=== PATIENT | male | born 1955 | race Caucasian/White ===

== ENCOUNTER → 2016-09-08 | Day surgery (SDC) | payer OTHER ==
--- NOTE | 2016-09-07 08:23 | MH ---
cc: MICK HANLEY M.D. DATE OF ADMISSION: 09/08/2016 DATE OF : 1955 CHIEF COMPLAINT Dysphagia. HISTORY OF PRESENT ILLNESS A 60-year-old male with a history of cancer status post radiation therapy. Richard had problems with dysphagia. He has had previous dilations by Dr. Geller that were successful. More recently GI had done dilation two years ago without much improvement. He is brought to the operating room for esophageal dilation under anesthesia. MEDICATIONS Meloxicam. ALLERGIES MORPHINE, UNSPECIFIED PENICILLIN RASH. PAST MEDICAL HISTORY 1. Hodgkin's disease. 2. Lung cancer. 3. Squamous cell skin cancer. 4. Hypertension. PHYSICAL EXAMINATION GENERAL: A well-developed thin male in no apparent distress. HEENT: Normocephalic, atraumatic. Extraocular motions intact. External ear canals clear. Lips, oral mucosa and oropharynx show no lesion. NECK: The neck shows no mass. CHEST: Clear to auscultation. HEART: Regular rate. ABDOMEN: Soft. EXTREMITIES: No lesion. NEUROLOGIC: Nonfocal. ASSESSMENT AND PLAN This is a 60-year-old male with previous cancer history. He is to undergo esophageal dilation with soft rubber dilators, multiple passes. The risks and benefits were discussed with the patient. The risks include but are not limited to those of anesthesia, bleeding, unfavorable scarring, hematoma, abscess, infection, perforation, bleeding, airway obstruction. The patient states he understands and accepts the risks of the procedure. MD FARZANA Nolen/EUSEBIO /7:56 AM /8:08 AM
[~2016-09-08] VITALS: Ht 165.1 cm; Wt 65.0 kg
[~2016-09-08] MED LIST: ACETAMINOPHEN/HYDROcodone 325 MG/5 MG TAB PO PRN; DEXAMETHASONE SOD PHOS 4 MG/ML VIAL ONE; DO NOT ADM ANY ANTICOAGULANT DRUGS XX PRN; FAMOTIDINE 20 MG/2 ML VIAL ONE; INSULIN HUMAN REGULAR 1,000 UNITS/10 ML VIAL SQ PRN; LACTATED RINGER'S 1000 ML IV SCH; MEPERIDINE HCL 25 MG/ML VIAL IV PRN; METOPROLOL TARTRATE 25 MG TAB PO PRN; MIDAZOLAM HCL 2 MG/2 ML VIAL ONE; ONDANSETRON HCL 4 MG/2 ML VIAL IV PUSH PRN; PROPOFOL 200 MG/20 ML AMP IV ONE; SODIUM CHLORID 0.9% 500 ML IV SCH; TELM5TAB PO
[2016-09-08 06:45] VITALS: BP 139/89; PULSE 69; RESP 16; TEMP 97.7; O2SAT 98
[2016-09-08 07:04] LABS: AUTOMATED NEUTROPHIL # 4.2 TH/MM3 (1.8-7.7); BASOPHIL # 0.1 TH/MM3 (0-0.2); BASOPHIL % 1.2 % (0.0-2.0); EOSINOPHIL # 0.2 TH/MM3 (0-0.4); EOSINOPHIL % 2.6 % (0.0-4.0); HEMATOCRIT 36.5 % (39.0-51.0); HEMO FLAGS DIFF FINAL; LYMPH % 27.7 % (9.0-44.0); MEAN CELL VOLUME 92.4 FL (80.0-100.0); MEAN CORPUSCULAR HEMOGLOBIN 32.9 PG (27.0-34.0); MEAN CORPUSCULAR HGB CONC 35.6 % (32.0-36.0); MONO % 9.6 % (0.0-8.0); NEUT % 58.9 % (16.0-70.0); PLATELET COUNT 291 TH/MM3 (150-450); RED BLOOD COUNT 3.95 MIL/MM3 (4.50-5.90); RED CELL DISTRIBUTION WIDTH 14.9 % (11.6-17.2); WHITE BLOOD COUNT 7.1 TH/MM3 (4.0-11.0)
--- NOTE | 2016-09-08 08:06 | MP ---
cc: MICK HANLEY M.D. DATE OF SURGERY 09/08/2016 INDICATIONS A 60-year-old male with history of head and neck cancer, previous history of Hodgkin's disease, radiation therapy. He has dysphagia, has had previous dilations with Dr. Smith in the past and by GI. He is to undergo esophageal dilation with multiple passes of soft rubber dilators. PREOPERATIVE DIAGNOSIS Dysphagia. POSTOPERATIVE DIAGNOSIS Dysphagia. PROCEDURE Esophageal dilation multiple passes with soft rubber dilators. SUMMARY The patient was brought to the operating room and placed in supine position, successfully placed under general anesthesia, prepped and draped in the usual fashion for this procedure. The head and neck tissues were palpated. There was no lesion. Then with careful digital exposure, the tongue was placed anteriorly and with several passes the dilators were used to proceed with esophageal dilation. He had the normal amount of resistance. There was no excessive bleeding. He tolerated procedure well. MD FARZANA Nolen/STEFFANY /7:39 AM /7:57 AM
[2016-09-08 09:11] VITALS: BP 140/87; PULSE 65; RESP 16; TEMP 97.8; O2SAT 99
--- NOTE | 2016-09-08 09:30 | EKG ---
Date Performed: 09/08/2016 Time Performed: 06:56:04 PTAGE: 60 years EKG: Sinus rhythm MODERATE VOLTAGE CRITERIA FOR LVH, CONSIDER NORMAL VARIANT BORDERLINE ECG PREVIOUS TRACING : 04/27/2007 09.33 DOCTOR: River Keita Interpretating Date/Time 09/08/2016 09:30:20
== END | disposition home or self-care (01) ==
LOC: HSDC 05:50
PROVIDERS: ATTEND Specialist
DX: R13.10 Dysphagia, unspecified (principal); I10 Essential (primary) hypertension; Z85.71 Personal history of Hodgkin lymphoma; Z85.828 Personal history of other malignant neoplasm of skin; Z92.3 Personal history of irradiation; Z88.0 Allergy status to penicillin
CPT/HCPCS: 00740; 43450; 85025; 93005; J2250; J1100

== ENCOUNTER → 2017-06-22 | Day surgery (SDC) | payer OTHER ==
--- NOTE | 2017-06-20 12:27 | MH ---
cc: MICK HANLEY DATE OF ADMISSION 06/22/2017 DATE OF November INDICATIONS This is a 61-year-old male with a history of head and neck cancer status post radiation therapy. He has had previous esophageal dilations which have helped him some with his swallowing. His last was in September 2016. He is now tight again and more symptomatic and is brought to the operating room for esophageal dilation under general anesthesia, soft rubber dilators, multiple passes. PAST MEDICAL HISTORY Significant for: 1. Hodgkin's disease 2. Lung cancer 3. Throat cancer PHYSICAL EXAMINATION This is a well-developed, well-nourished male in no apparent distress. HEAD, EYES, EARS, NOSE, AND THROAT: Normocephalic, atraumatic. Extraocular motions intact. External ear canals clear. Lips, oral mucosa and oropharynx show no lesion. NECK: The neck shows post radiation changes. Fiberoptic laryngoscopy shows no lesion. No pooling of secretions. The neck shows no mass. CHEST: Clear to auscultation. HEART: Regular rate. ABDOMEN: Soft. EXTREMITIES: No lesion. NEUROLOGIC: Exam nonfocal. ASSESSMENT This is a 61-year-old male with dysphagia, history of head and neck cancer and radiation. He is to undergo esophageal dilation multiple passes with soft rubber dilators. The risks and benefits were discussed with the patient. The risks include, but are not limited to those of anesthesia, bleeding, unfavorable scarring, hematoma, abscess, infection, perforation, airway obstruction. The patient states he understands and accepts the risks of the procedure. MD FARZANA Nolen/SIMRAN /12:06 PM /12:17 PM
[~2017-06-22] VITALS: Ht 166.4 cm; Wt 63.5 kg
[~2017-06-22] MED LIST changes: +*LABETALOL HCL 100 MG/20 ML VIAL PERIprocedural Use ONLY ONE; +CHLORHEXIDINE GLUCONATE 2 % 1 PACK (2 CLOTHS) TOPICAL PRN; +DO NOT ADM ANY ANTICOAGULANT DRUGS PRN; -DO NOT ADM ANY ANTICOAGULANT DRUGS XX PRN; -FAMOTIDINE 20 MG/2 ML VIAL ONE; +LACTATED RINGER'S 1000 ML IV PRN; -LACTATED RINGER'S 1000 ML IV SCH; +LIDOCAINE HCL 1% PF 5 ML SYRINGE OTHER ONE; -MEPERIDINE HCL 25 MG/ML VIAL IV PRN; +MIDAZOLAM HCL 2 MG/2 ML VIAL IV ONE; -MIDAZOLAM HCL 2 MG/2 ML VIAL ONE; +MORPHINE SULFATE 2 MG/ML INJ IV PUSH PRN; +POVIDONE IODINE 5% (ANTISEPSIS KIT) 4 APPLICATIONS EACH NARE PRN; +SODIUM CHLORID 0.9% 500 ML IV PRN; -SODIUM CHLORID 0.9% 500 ML IV SCH
[2017-06-22 10:07] LABS: AUTOMATED NEUTROPHIL # 2.6 TH/MM3 (1.8-7.7); BASOPHIL # 0.1 TH/MM3 (0-0.2); BASOPHIL % 1.1 % (0.0-2.0); EOSINOPHIL # 0.2 TH/MM3 (0-0.4); EOSINOPHIL % 2.9 % (0.0-4.0); HEMATOCRIT 40.2 % (39.0-51.0); HEMO FLAGS DIFF FINAL; LYMPH % 42.1 % (9.0-44.0); LYMPHOCYTE # 2.6 TH/MM3 (1.0-4.8); MEAN CELL VOLUME 93.8 FL (80.0-100.0); MEAN CORPUSCULAR HEMOGLOBIN 31.3 PG (27.0-34.0); MEAN CORPUSCULAR HGB CONC 33.3 % (32.0-36.0); MONO % 10.7 % (0.0-8.0); NEUT % 43.2 % (16.0-70.0); PLATELET COUNT 277 TH/MM3 (150-450); RED BLOOD COUNT 4.29 MIL/MM3 (4.50-5.90); RED CELL DISTRIBUTION WIDTH 14.5 % (11.6-17.2); WHITE BLOOD COUNT 6.1 TH/MM3 (4.0-11.0)
--- NOTE | 2017-06-22 11:34 | MP ---
cc: MICK HANLEY DATE OF ADMISSION 06/22/2017 DATE OF 1955 INDICATION This is a 61-year-old male with dysphagia, history of head and neck cancer who is to undergo esophageal dilation multiple passes with soft rubber dilators under general anesthesia. PREOPERATIVE DIAGNOSIS Dysphagia POSTOPERATIVE DIAGNOSIS Dysphagia PROCEDURE Esophageal dilation, multiple passes soft rubber dilators. SUMMARY The patient brought to the operating room, placed in the supine position, successfully placed under general anesthesia and prepared in the usual fashion for this procedure. The head and neck was palpated. There was no masses and with soft rubber dilators under digital placement, he had dilation taken from 44-50 German with multiple passes. He tolerated this well. There was no sign of bleeding. His airway remained stable. He was then awakened and taken to recovery in stable condition. MD FARZANA Nolen/SIMRAN /11:05 AM /11:26 AM
[2017-06-22 12:45] VITALS: BP 139/91; PULSE 68; RESP 16; TEMP 98; O2SAT 98
== END | disposition home or self-care (01) ==
LOC: HSDC 08:27
PROVIDERS: ATTEND Specialist
DX: R13.10 Dysphagia, unspecified (principal); K22.2 Esophageal obstruction; I10 Essential (primary) hypertension; Z85.71 Personal history of Hodgkin lymphoma; Z85.118 Personal history of other malignant neoplasm of bronchus and lung; Z92.3 Personal history of irradiation
CPT/HCPCS: 00740; 43450; 85025; J2250; J3010; J7120; J1100

== ENCOUNTER 2017-12-22 13:19 | Emergency (ER) | payer SELFPAY ==
[~2017-12-22 13:19] MED LIST changes: -*LABETALOL HCL 100 MG/20 ML VIAL PERIprocedural Use ONLY ONE; -ACETAMINOPHEN/HYDROcodone 325 MG/5 MG TAB PO PRN; -CHLORHEXIDINE GLUCONATE 2 % 1 PACK (2 CLOTHS) TOPICAL PRN; -DEXAMETHASONE SOD PHOS 4 MG/ML VIAL ONE; -DO NOT ADM ANY ANTICOAGULANT DRUGS PRN; -INSULIN HUMAN REGULAR 1,000 UNITS/10 ML VIAL SQ PRN; -LACTATED RINGER'S 1000 ML IV PRN; -LIDOCAINE HCL 1% PF 5 ML SYRINGE OTHER ONE; -METOPROLOL TARTRATE 25 MG TAB PO PRN; -MIDAZOLAM HCL 2 MG/2 ML VIAL IV ONE; -MORPHINE SULFATE 2 MG/ML INJ IV PUSH PRN; -ONDANSETRON HCL 4 MG/2 ML VIAL IV PUSH PRN; -POVIDONE IODINE 5% (ANTISEPSIS KIT) 4 APPLICATIONS EACH NARE PRN; -PROPOFOL 200 MG/20 ML AMP IV ONE; -SODIUM CHLORID 0.9% 500 ML IV PRN
[2017-12-22 13:42] VITALS: BP 141/76; PULSE 99; RESP 17; TEMP 98.4; O2SAT 97
[2017-12-22 15:57] VITALS: BP 188/109; PULSE 86; RESP 18; O2SAT 96
--- NOTE | 2017-12-22 16:03 | PD ---
HPI Chief Complaint: Back/ Neck Pain or Injury Time Seen by Provider: 15:42 Travel History International Travel<30 days: No Contact w/Intl Traveler<30days: No Traveled to known affect area: No History of Present Illness HPI 62-year-old male complains of right hip pain, neck pain, low back pain. Patient started having sharp pain localized the right hip about 2 weeks ago. Patient denies any injury to right hip. Patient was seen by personal physician and sent for physical therapy. Patient states that she went to therapy yesterday and started having neck pain and low back pain after therapy. Patient denies any headache. Patient denies any visual change. Patient states that neck pain back pain did sharp and aching pain localized to the neck area and low back area. Patient denies any pain radiation. Patient denies any fever chills. Patient denies any weakness or numbness of the extremity. Patient denies any problem with bladder or bowel control. Patient did have a history of non-Hodgkin's lymphoma status post mastoid surgery in the past . 1740 PM. Patient now complaint headache and elevated blood pressure. Patient states that headache started yesterday aching headache diffuse over the head. Patient denies any visual change. Patient denies any nausea vomiting. PFSH Past Medical History Cancer: Yes (NECK, LUNG) Cardiovascular Problems: No Diabetes: No Diminished Hearing: No Endocrine: No Genitourinary: No Hepatitis: No Hiatal Hernia: No Hypertension: Yes Immune Disorder: No Musculoskeletal: No Neurologic: No Psychiatric: No Reproductive: No Respiratory: No Thyroid Disease: No Past Surgical History Abdominal Surgery: Yes (SPLEENECTOMY, APPY) AICD: No Appendectomy: Yes Body Medical Devices: ABDOMINAL DAMON Cardiac Surgery: No Ear Surgery: No Endocrine Surgery: No Eye Surgery: No Genitourinary Surgery: No Gynecologic Surgery: No Joint Replacement: No Oral Surgery: Yes (ADNOIDECTOMY) Pacemaker: No Thoracic Surgery: No Other Surgery: Yes (PT. HAS HAD SPLEEN, LUMP NODES, MASTOID AND COLLARBONE ON LEFT SIDE REMOVED) Social History Alcohol Use: No Tobacco Use: No Substance Use: No Allergies-Medications (Allergen,Severity, Reaction): Coded Allergies: aspirin (Unverified Allergy, Mild, 12/22/17) diphenhydramine (Unverified Allergy, Mild, 12/22/17) morphine (Unverified Allergy, Mild, Itching, 12/22/17) penicillin G (Unverified Allergy, Mild, 12/22/17) Reported Meds & Prescriptions Reported Meds & Active Scripts Active Reported Amlodipine (Amlodipine Besylate) 10 Mg Tab 10 Mg PO DAILY Telmisartan 20 Mg Tab 20 Mg PO DAILY Review of Systems General / Constitutional: No: Fever Eyes: No: Visual changes HENT: Positive: Neck Pain, No: Headaches Cardiovascular: No: Chest Pain or Discomfort Respiratory: No: Shortness of Breath Gastrointestinal: No: Abdominal Pain Genitourinary: No: Dysuria Musculoskeletal: Positive: Pain Skin: No Rash Neurologic: No: Weakness Psychiatric: No: Depression Endocrine: No: Polydipsia Hematologic/Lymphatic: No: Easy Bruising Physical Exam Narrative GENERAL: Well-nourished, well-developed patient. SKIN: Focused skin assessment warm/dry. HEAD: Normocephalic. EYES: No scleral icterus. No injection or drainage. NECK: Supple, trachea midline. No JVD or lymphadenopathy. Patient has mild paravertebral tenderness on palpation of cervical spine. No midline tenderness. CARDIOVASCULAR: Regular rate and rhythm without murmurs, gallops, or rubs. RESPIRATORY: Breath sounds equal bilaterally. No accessory muscle use. GASTROINTESTINAL: Abdomen soft, non-tender, nondistended. MUSCULOSKELETAL: No cyanosis, or edema. Mild tenderness in palpation lateral and anterior aspect of the right hip joint. Full range of motion right hip joint. BACK: Patient has mild tenderness on palpation paravertebral area of the lumbar spine. Negative straight leg raising. Neurologic exam: Patient awake alert oriented 3. Patient moves all extremity well. No obvious focal neurological deficit. Data Data Last Documented VS Vital Signs Date Time Temp Pulse Resp B/P (MAP) Pulse Ox O2 Delivery O2 Flow Rate FiO2 12/22/17 18:51 86 18 169/99 (122) 97 Room Air 12/22/17 13:42 98.4 Orders Orders Mri C Spine W/O Contrast (12/22/17 15:53) Mri L Spine W/O Contrast (12/22/17 15:53) Hip, Uni(Ap&Lat) W Ap Pelvis (12/22/17 15:53) Ct Brain W/O Iv Contrast(Rout) (12/22/17 17:42) Basic Metabolic Panel (Bmp) (12/22/17 17:42) Iv Access Insert/Monitor (12/22/17 17:42) Ecg Monitoring (12/22/17 17:42) Hydralazine Inj (Apresoline Inj) (12/22/17 17:45) Acetaminophen (Tylenol) (12/22/17 17:45) Labetalol Inj (Trandate Inj) (12/22/17 18:00) Labetalol Inj (Trandate Inj) (12/22/17 18:45) Labs Laboratory Tests Test 12/22/17 17:55 Blood Urea Nitrogen 12 MG/DL Creatinine 0.90 MG/DL Random Glucose 110 MG/DL Calcium Level 8.9 MG/DL Sodium Level 138 MEQ/L Potassium Level 3.4 MEQ/L Chloride Level 100 MEQ/L Carbon Dioxide Level 30.1 MEQ/L Anion Gap 8 MEQ/L Estimat Glomerular Filtration Rate 85 ML/MIN MDM Medical Decision Making Medical Screen Exam Complete: Yes Emergency Medical Condition: Yes Interpretation(s) Last Impressions Lumbar Spine MRI 12/22/17 1553 Signed Impressions: CONCLUSION: 1. Moderate facet arthropathy changes involving L4-L5 and L5-S1. No central ca nal stenosis or neural foraminal impingement. Hip and Pelvis X-Ray 12/22/17 1553 Signed Impressions: CONCLUSION: No evidence of acute process or significant arthropathy. Cervical Spine MRI 12/22/17 1553 Signed Impressions: CONCLUSION: 1. Minimal degenerative disc disease at C4-C5 and C5-C6. No neural impingement or abutment of the cord. 2. Multinodular thyroid goiter. Differential Diagnosis Differential diagnosis including strain, fracture, HNP, osteoarthritis, dislocation. Narrative Course 62-year-old male with neck pain, back pain right hip pain. Patient's blood pressure is elevated. Patient complains a headache. Hydralazine 10 mg IV given. Tylenol 650 mg p.o. given. Josué Cagle MD Dec 22, 2017 16:03
--- NOTE | 2017-12-22 16:33 | RADRPT ---
EXAM DATE: 12/22/2017 4:24 PM EDT AGE/SEX: 62 years / Male INDICATIONS: Right hip pain; No known injury. CLINICAL DATA: This is the patient's initial encounter. Patient reports that signs and symptoms have been present for 3 weeks and indicates a pain score of 7/10. MEDICAL/SURGICAL HISTORY: Hypertension. Appendectomy. Splenectomy. COMPARISON: No prior exams available for comparison. FINDINGS: Bony structures are intact and in normal alignment. Joints are intact without dislocation or signifi cant arthropathy. Osseous density is normal. Soft tissues are unremarkable. No radiopaque foreign bodies seen. CONCLUSION: No evidence of acute process or significant arthropathy. Electronically signed by: Art Goins MD 12/22/2017 4:32 PM EDT
--- NOTE | 2017-12-22 17:25 | RADRPT ---
EXAM DATE: 12/22/2017 4:59 PM EDT AGE/SEX: 62 years / Male INDICATIONS: Pain. CLINICAL DATA: This is the patient's initial encounter. Patient reports that signs and symptoms have been present for 2 days and indicates a pain score of 3/10. MEDICAL/SURGICAL HISTORY: Hypertension. Lymphoma. Appendectomy. Splenectomy. Adenoidectomy. COMPARISON: No prior exams available for comparison. TECHNIQUE: Multiplanar, multisequence MRI examination of the cervical spine was performed without co ntrast. FINDINGS: Vertebrae: Normal vertebral body height. Homogeneous marrow signal. Alignment: Normal. Cord: Normal configuration and signal. Post Fossa: The cerebellar tonsils are normal in position. C2-C3: The thecal sac has a normal configuration. There is no evidence of disc herniation or spinal canal stenosis. The neural foramina are patent bilaterally. C3-C4: The thecal sac has a normal configuration. There is no evidence of disc herniation or spinal canal stenosis. The neural foramina are patent bilaterally. C4-C5: Disc space height well preserved. A minimal broad-based bulge. No abutment of the cord, centr al canal stenosis, or lateral recess narrowing. Neural foramina are patent bilaterally. C5-C6: Disc space height well preserved. A minimal broad-based bulge. No abutment of the cord, centr al canal stenosis, or lateral recess narrowing. Neural foramina are patent bilaterally C6-C7: The thecal sac has a normal configuration. There is no evidence of disc herniation or spinal canal stenosis. The neural foramina are patent bilaterally. C7-T1: No epidural impressions seen. Multiple nodules involving the thyroid gland. CONCLUSION: 1. Minimal degenerative disc disease at C4-C5 and C5-C6. No neural impingement or abutment of the co rd. 2. Multinodular thyroid goiter. Electronically signed by: Brodie Villareal MD 12/22/2017 5:24 PM EDT
--- NOTE | 2017-12-22 17:28 | RADRPT ---
EXAM DATE: 12/22/2017 5:20 PM EDT AGE/SEX: 62 years / Male INDICATIONS: Pain. CLINICAL DATA: This is the patient's initial encounter. Patient reports that signs and symptoms have been present for 2 days and indicates a pain score of 3/10. MEDICAL/SURGICAL HISTORY: Hypertension. Lymphoma. Appendectomy. Splenectomy. Adenoidectomy. COMPARISON: No prior exams available for comparison. TECHNIQUE: Multiplanar, multisequence MRI of the lumbar spine was performed without contrast. Patie nt was scanned in a sitting position; neutral, flexion, and extension scans were performed in the sa gittal plane. FINDINGS: Vertebra: Homogeneous signal. Normal alignment. Conus: Normal level and configuration. T12-L1: The thecal sac has a normal diameter. No evidence of disc bulge or protrusion. The neural foramina are patent bilaterally. L1-L2: The thecal sac has a normal diameter. No evidence of disc bulge or protrusion. The neural foramina are patent bilaterally. L2-L3: The thecal sac has a normal diameter. No evidence of disc bulge or protrusion. The neural foramina are patent bilaterally. L3-L4: The thecal sac has a normal diameter. No evidence of disc bulge or protrusion. The neural foramina are patent bilaterally. L4-L5: The thecal sac has a normal diameter. No evidence of disc bulge or protrusion. The neural foramina are patent bilaterally. Moderate bony hypertrophy of the facet joints. L5-S1: The thecal sac has a normal diameter. No evidence of disc bulge or protrusion. The neural foramina are patent bilaterally. Moderate bony hypertrophy of the facet joints. CONCLUSION: 1. Moderate facet arthropathy changes involving L4-L5 and L5-S1. No central canal stenosis or neural foraminal impingement. Electronically signed by: Brodie Villareal MD 12/22/2017 5:27 PM EDT
[2017-12-22] MEDS ORDERED: hydrALAZINE HCL 20 MG/ML VIAL IV PUSH ONE (17:45)
[2017-12-22] MEDS ORDERED: ACETAMINOPHEN 325 MG TAB PO ONE (17:45)
[2017-12-22] MEDS ORDERED: LABETALOL HCL 100 MG/20 ML VIAL IV PUSH ONE ×2 (18:00→18:45)
[2017-12-22 18:04] VITALS: BP_SYST 232; BP_SYST 235; BP_DIAS 124; PULSE 93; PULSE 95; RESP 16; RESP 18; O2SAT 94; O2SAT 98
[2017-12-22] MEDS ORDERED: AMLO10TA2 PO (18:06)
[2017-12-22 18:28] LABS: BICARBONATE 30.1 MEQ/L (21.0-32.0); CALCIUM 8.9 MG/DL (8.5-10.1); CREATININE 0.9 MG/DL (0.60-1.30)
[2017-12-22 18:34] VITALS: BP 195/113; PULSE 89; RESP 20; O2SAT 95
[2017-12-22 18:51] VITALS: BP 169/99; PULSE 86; RESP 18; O2SAT 97
--- NOTE | 2017-12-22 19:06 | RADRPT ---
EXAM DATE: 12/22/2017 7:00 PM EDT AGE/SEX: 62 years / Male INDICATIONS: Cephalgia since last night. CLINICAL DATA: This is the patient's initial encounter. Patient reports that signs and symptoms have been present for 1 day and indicates a pain score of 7/10. MEDICAL/SURGICAL HISTORY: Hypertension. Carcinoma, lung. Carcinoma, head and neck. None. RADIATION DOSE: 32.56 CTDI (mGy) COMPARISON: No prior exams available for comparison. TECHNIQUE: CT of the head without contrast. Using automated exposure control and adjustment of the mA and/or kV according to patient size, radiation dose was kept as low as reasonably achievable to ob tain optimal diagnostic quality images. FINDINGS: Cerebrum: The ventricles are normal for age. No evidence of midline shift, mass lesion, hemorrhage or acute infarction. No extraaxial fluid collections are seen. Posterior Fossa: The cerebellum and brainstem are intact. The 4th ventricle is midline. The cerebe llopontine angle is unremarkable. Extracranial: The visualized portion of the orbits is intact. Skull: The calvaria is intact. No evidence of skull fracture. CONCLUSION: 1. No acute intracranial abnormality Electronically signed by: Bharat Roche MD 12/22/2017 7:04 PM EDT
[2017-12-22 19:14] VITALS: BP 138/88; PULSE 83; RESP 16; O2SAT 97
== END 2017-12-22 20:57 | disposition home or self-care (01) ==
LOC: NEPC 13:19
DX: M50.321 Other cervical disc degeneration at C4-C5 level (principal); M54.5 Low back pain; M25.551 Pain in right hip; I10 Essential (primary) hypertension; R51 Headache; E04.2 Nontoxic multinodular goiter; Z85.72 Personal history of non-Hodgkin lymphomas
CPT/HCPCS: 70450; 72141; 72148; 73502; 80048; 96374; 96375

== ENCOUNTER 2018-03-07 20:03 | Observation (INO) ==
--- NOTE | 2018-03-07 21:32 | CT ---
EXAM DATE: 03/07/2018 9:27 PM EDT AGE/SEX: 62 years / Male INDICATIONS: Dizziness. Left arm and facial numbness for one week intermittently. CLINICAL DATA: This is the patient's initial encounter. Patient reports that signs and symptoms have been present for 1 week and indicates a pain score of 0/10. MEDICAL/SURGICAL HISTORY: None. None. RADIATION DOSE: 41.19 CTDI (mGy) COMPARISON: . TECHNIQUE: CT of the head without contrast. Using automated exposure control and adjustment of the mA and/or kV according to patient size, radiation dose was kept as low as reasonably achievable to ob tain optimal diagnostic quality images. DICOM format image data is available electronically for revi ew and comparison. FINDINGS: Cerebrum: The ventricles are normal for age. No evidence of midline shift, mass lesion, hemorrhage or acute infarction. No extraaxial fluid collections are seen. Posterior Fossa: The cerebellum and brainstem are intact. The 4th ventricle is midline. The cerebe llopontine angle is unremarkable. Extracranial: The visualized portion of the orbits is intact. Skull: The calvaria is intact. No evidence of skull fracture. CONCLUSION: 1. No acute infarct, acute hemorrhage, midline shift or extra axial fluid collections. 2. Chronic opacification of the right maxillary sinus and posterior ethmoid air cells bilaterally. Electronically signed by: Matthew Corrales MD 03/07/2018 9:31 PM EDT
--- NOTE | 2018-03-07 21:54 | ED ---
HPI General Chief Complaint: Dizziness Stated Complaint: Lightheaded/left arm numbness [id number] History of Present Illness HPI Narrative: 62-year-old male with a past medical history of hypertension and non-Hodgkin lymphoma status post radical neck dissection in 1976 presents to the emergency room complaining of left sided numbness that started around 4 PM lasting few minutes and completely resolved. Patient complains of nausea and dizziness along with the symptoms. He denies any fever, chills, loss of consciousness, seizure-like activity, syncope or focal deficits otherwise. Patient had similar episodes a month ago for which he was admitted to the hospital and received MRI of the head and neck. Patient denies any chest pain, shortness of breath, fever, chills, abdominal pain or skin rash. Related Data Home Medications Medication Instructions Recorded Confirmed amlodipine-benazepril 5 mg PO DAILY 03/07/18 03/08/18 telmisartan 40 mg PO DAILY 03/07/18 03/07/18 Allergies Allergy/AdvReac Type Severity Reaction Status Date / Time aspirin Allergy Mild UNJ Verified 03/07/18 21:06 diphenhydramine Allergy Mild UNK Verified 03/07/18 21:06 morphine Allergy Mild Itching Verified 03/07/18 21:06 penicillin G Allergy Mild UNK Verified 03/07/18 21:06 Review of Systems Constitutional Denies fever(s) Eyes Denies change in vision ENT Denies headache(s) and Denies nasal congestion Cardiovascular Denies chest pain Respiratory Denies dyspnea Gastrointestinal Denies abdominal pain Genitourinary Denies difficulty urinating Musculoskeletal Denies myalgias Integumentary/Breasts Denies rash Neurologic Reports tingling and Reports paresthesias Psychiatric Denies depression Endocrine Denies polyuria Hematologic/Lymphatic Denies easy bruising [facility] Social History Social History Substance History: No History of Abuse Second Hand Smoke Exposure: No Smoking Status: Never smoker How Often Do You Have a Drink Containing Alcohol: Never Recent Travel in [facility] within the Last 8 Weeks: No Recent Out of Country Travel within the Last 8 Weeks: No Immunization History Tetanus Immunization: <5 Years Hx Influenza Vaccine This Season: Yes Exam Narrative Exam Narrative: GENERAL: Patient is alert and oriented -3 SKIN: Focused skin assessment warm/dry. HEAD: Atraumatic. Normocephalic. EYES: Pupils equal and round. No scleral icterus. No injection or drainage. ENT: No nasal bleeding or discharge. Mucous membranes pink and moist. NECK: Trachea midline. No JVD. Left neck dissection scar was loss of muscles CARDIOVASCULAR: Regular rate and rhythm. No murmur appreciated. RESPIRATORY: No accessory muscle use. Clear to auscultation. Breath sounds equal bilaterally. GASTROINTESTINAL: Abdomen soft, non-tender, nondistended. Hepatic and splenic margins not palpable. MUSCULOSKELETAL: No obvious deformities. No clubbing. No cyanosis. No edema. NEUROLOGICAL: Awake and alert. No obvious cranial nerve deficits. Motor grossly within normal limits. Normal speech. PSYCHIATRIC: Appropriate mood and affect; insight and judgment normal. Course Reevaluation(s) Reevaluation #1: Patient condition is stable during the ER course without neurological deficits. I personally reexamined and counseled the patient about his diagnosis and results. Time: 21:54 Initial Documented Vital Signs Temperature 98.4 F 03/07/18 20:05 Pulse Rate 84 03/07/18 20:05 Respiratory Rate 16 03/07/18 20:05 Blood Pressure 147/84 H 03/07/18 20:05 Pulse Oximetry 98 03/07/18 20:05 Last Documented Vital Signs Temperature 96.1 F L 03/08/18 04:00 Pulse Rate 82 03/08/18 04:00 Respiratory Rate 20 03/08/18 04:00 Blood Pressure 128/80 03/08/18 04:00 Pulse Oximetry 96 03/08/18 04:00 Medical Decision Making [facility] Narrative Medical Screen Exam Complete: Yes Emergency Medical Condition: Yes Lab Data Result diagrams: 03/07/18 21:40 03/07/18 21:40 Lab Results 03/07/18 03/07/18 Range/Units 21:40 21:40 CBC w Diff Auto diff final WBC 7.0 (4.0-11.0) th/mm3 RBC 4.80 (4.50-5.90) mil/mm3 Hgb 14.8 (13.0-17.0) gm/dL Hct 45.1 (39.0-51.0) % MCV 94.0 (80.0-100.0) fL MCH 30.8 (27.0-34.0) pg MCHC 32.7 (32.0-36.0) % RDW 14.1 (11.6-17.2) % Plt Count 328 (150-450) th/mm3 MPV 8.1 (7.0-11.0) fL Neut % (Auto) 62.9 (16.0-70.0) % Lymph % (Auto) 27.9 (9.0-44.0) % [place] % (Auto) 6.2 (0.0-8.0) % Eos % (Auto) 1.2 (0.0-4.0) % Baso % (Auto) 1.8 (0.0-2.0) % Neut # (Auto) 4.4 (1.8-7.7) th/mm3 Lymph # (Auto) 2.0 (1.0-4.8) th/mm3 [place] # (Auto) 0.4 (0.0-0.9) th/mm3 Eos # (Auto) 0.1 (0.0-0.4) th/mm3 Baso # (Auto) 0.1 (0.0-0.2) th/mm3 WBC Differential . Differential Comment . Sodium 141 (136-145) meq/L Potassium 3.9 (3.5-5.1) meq/L Chloride 105 (98-107) meq/L Carbon Dioxide 33.1 H (21.0-32.0) meq/L Anion Gap 3 L (5-15) meq/L BUN 15 (7-18) mg/dL Creatinine 1.10 (0.60-1.30) mg/dL Estimated GFR 67 L (>89) mL/min Random Glucose 98 (74-106) mg/dL Calcium 9.5 (8.5-10.1) mg/dL Total Bilirubin 0.6 (0.2-1.0) mg/dL AST 17 (15-37) U/L ALT 22 (12-78) U/L Alkaline Phosphatase 87 (45-117) U/L Total Protein 8.0 (6.4-8.2) g/dL Albumin 4.2 (3.4-5.0) g/dL Imaging Data Radiologist's impression: Head CT 03/07/18 21:10 CONCLUSION: 1. No acute infarct, acute hemorrhage, midline shift or extra axial fluid collections. 2. Chronic opacification of the right maxillary sinus and posterior ethmoid air cells bilaterally. Discharge Plan Discharge Disposition Patient Disposition: 02 Transfer to [facility] Discharge Condition Condition: Fair Discharge Details Discharge Comment: Patient is admitted to the [facility] observation unit for [address] Joshua Diagnosis: Transient cerebral ischemia Physicians Team ED Provider: Mike Guajardo Primary Care Provider: Primary Amina Wolfe Attending Provider: Yokasta Lowery Status ED Status: Left Department Discharge Information Discharge Date/Time: 03/08/18 01:02
[2018-03-07 21:57] LABS: Baso # (Auto) 0.1 th/mm3 (0.0-0.2); Baso % (Auto) 1.8 % (0.0-2.0); Eos # (Auto) 0.1 th/mm3 (0.0-0.4); Eos % (Auto) 1.2 % (0.0-4.0); Hematocrit 45.1 % (39.0-51.0); Hemoglobin 14.8 gm/dL (13.0-17.0); Lymph % (Auto) 27.9 % (9.0-44.0); Mean Corpuscular HGB Conc 32.7 % (32.0-36.0); Mean Corpuscular Hemoglobin 30.8 pg (27.0-34.0); Mean Platelet Volume 8.1 fL (7.0-11.0); Mono # (Auto) 0.4 th/mm3 (0.0-0.9); Mono % (Auto) 6.2 % (0.0-8.0); Neut # (Auto) 4.4 th/mm3 (1.8-7.7); Neut % (Auto) 62.9 % (16.0-70.0); Platelet Count 328 th/mm3 (150-450); Red Cell Distribution Width 14.1 % (11.6-17.2)
[2018-03-07 22:05] LABS: Chloride 105 meq/L (98-107); Potassium 3.9 meq/L (3.5-5.1); Sodium 141 meq/L (136-145)
[2018-03-07 22:08] LABS: Calcium 9.5 mg/dL (8.5-10.1)
[2018-03-07 22:09] LABS: Albumin 4.2 g/dL (3.4-5.0); Anion Gap 3 meq/L (5-15); Blood Urea Nitrogen 15 mg/dL (7-18); Carbon Dioxide 33.1 meq/L (21.0-32.0); Glucose,Random 98 mg/dL (74-106)
[2018-03-07] MEDS ORDERED: Dextrose 50% in Water 50 ML Vial IV.PUSH PRN (22:09)
[2018-03-07 22:12] LABS: Alanine Aminotransferase 22 U/L (12-78); Aspartate Aminotransferase 17 U/L (15-37); Glomerular Filtration Rate 67 mL/min (>89)
[2018-03-07 22:15] LABS: Alkaline Phosphatase 87 U/L (45-117)
[2018-03-08 11:05] LABS: Chol/HDL Ratio 2.88 Ratio; Folate 15.9 ng/mL (3.1-17.5); HDL Cholesterol 47.2 mg/dL (40.0-60.0)
--- NOTE | 2018-03-08 11:21 | US ---
EXAM DATE: 03/08/2018 10:52 AM EDT AGE/SEX: 62 years / Male INDICATIONS: Transient ischemic attack. CLINICAL DATA: This is the patient's initial encounter. Patient reports that signs and symptoms have been present for 1 day and indicates a pain score of 0/10. MEDICAL/SURGICAL HISTORY: Hypertension. Non-Hodgkin's Lymphoma. . Radical Neck dissection. COMPARISON: No prior exams available for comparison. VELOCITY PARAMETERS: ICA/CCA Ratio: Right 4.2 , Left 0.8 ICA: Right 192 cm/sec, Left 102 cm/sec CCA: Right 46 cm/sec, Left 124 cm/sec ECA: Right 198 cm/sec, Left 105 cm/sec Vertebral: Right 40 cm/sec antegrade, Left 40 cm/sec antegrade FINDINGS: Right Carotid: Prominent mixed plaque extending from the bulb to the origin of the internal and exte rnal carotid arteries.The waveforms are within normal limits. Left Carotid: Mild arteriosclerotic plaque is visualized. The waveforms are within normal limits. Other: None. CONCLUSION: 1. Right Internal Carotid Artery: Prominent mixed plaque extending from the bulb to the origin of th e internal carotid artery with significantly increased ratios consistent with severe, greater than 70 %, stenosis. 2. Left Internal Carotid Artery: Findings indicate <50% stenosis. Electronically signed by: Butch Del Valle MD 03/08/2018 11:20 AM EDT
--- NOTE | 2018-03-08 16:13 | MR ---
EXAM DATE: 03/08/2018 2:38 PM EDT AGE/SEX: 62 years / Male INDICATIONS: . Left sided weakness. CLINICAL DATA: This is the patient's subsequent encounter. Patient reports that signs and symptoms h ave been present for 2 days and indicates a pain score of 0/10. MEDICAL/SURGICAL HISTORY: Hypertension. Lymphoma. Appendectomy. Splenectomy. radical neck res ection. COMPARISON: No prior exams available for comparison. TECHNIQUE: Multiplanar, multisequence examination of the brain was performed without contrast. FINDINGS: The craniocervical junction and midline structures are unremarkable. There are small punctate areas of restricted diffusion at the menard-white junction in the right parietal region which would be consis tent with left-sided weakness. No large cortical infarct is identified. Differential diagnostic possi bilities include emboli as well as vasculitis. Posterior fossa structures are unremarkable. CONCLUSION: 1. Punctate areas of ischemic infarction involving the menard-white junction in the right parietal reg ion as described above. Emboli as well as vasculitis would be considered. Electronically signed by: Cam Berry MD 03/08/2018 4:12 PM EDT
--- NOTE | 2018-03-08 17:07 | P.HP ---
History of Present Illness Service: Hospitalist Primary Care Physician: No Primary Care Physician Chief Complaint: Left sided weakness. History of Present Illness: Mr. Calle is a pleasant 62-year-old male with a history of hypertension, non-Hodgkin's lymphoma status post radiation to his left side of his neck in 1976 who presented to the emergency department on 03/07/2018 due to left-sided numbness that started around 4 PM. He initially had left upper extremity numbness which was short-lived. However later on he had left arm and left leg weakness. He had some dizziness and lightheadedness no chest pain, shortness of breath. No fever or chills. No changes in bowel or bladder habits. Upon arrival CT scan showed no acute infarct or acute hemorrhage. Past medical history: Hypertension, non-Hodgkin's lymphoma, bicuspid aortic valve status post surgery. Past surgical history: Neck dissection due to non-Hodgkin's lymphoma, shoulder surgery, appendectomy, cholecystectomy, bicuspid aortic valve surgery Family history: Father had heart disease., Knee surgery Social history: Patient denies using tobacco, alcohol, illicit drugs. Review of Systems All other systems reviewed negative except as stated in HPI [facility] - History History Provided By: Patient - Tobacco History Second Hand Smoke Exposure: No Tobacco Use In Past 30 Days: No Smoking Status: Never smoker - Alcohol History How Often Do You Have a Drink Containing Alcohol: Never - Substance Use History Substance History: No History of Abuse - Travel History Recent Travel in the [place] Within the Last 8 Weeks: No Recent Travel Out of the Country Within the Last 8 Weeks: No - Immunization History Tetanus Immunization: <5 Years Hx Influenza Vaccine This Season: Yes Medications and Allergies Active Medications: Active Medications Dextrose (D50w Vial) 50 ml IV.PUSH UNSCH PRN PRN Reason: per Hypoglycemic Protocol Glucagon (Glucagon Inj) 1 mg OTHER UNSCH PRN PRN Reason: per Hypoglycemic Protocol Allergies Allergy/AdvReac Type Severity Reaction Status Date / Time aspirin Allergy Mild UNJ Verified 03/07/18 21:06 diphenhydramine Allergy Mild UNK Verified 03/07/18 21:06 morphine Allergy Mild Itching Verified 03/07/18 21:06 penicillin G Allergy Mild UNK Verified 03/07/18 21:06 Home Medications Medication Instructions Recorded Confirmed Type amlodipine-benazepril 5 mg PO DAILY 08/28/18 08/29/18 History telmisartan 40 mg PO DAILY 03/07/18 03/07/18 History Exam Vital signs: Vital Signs 03/07/18 20:05 03/07/18 21:08 03/07/18 23:22 Temperature 98.4 F Pulse Rate 84 87 87 Respiratory Rate 16 18 16 Blood Pressure 147/84 H 139/85 138/72 Pulse Oximetry 98 99 99 03/08/18 01:00 03/08/18 01:05 03/08/18 01:18 Temperature 96.1 F L 96.1 F L 96.1 F L Pulse Rate 73 73 73 Respiratory Rate 20 20 20 Blood Pressure 135/87 135/87 135/87 Pulse Oximetry 97 97 97 03/08/18 02:00 03/08/18 04:00 03/08/18 08:00 Temperature 96.1 F L 97.6 F Pulse Rate 76 82 87 Respiratory Rate 20 15 Blood Pressure 128/80 122/77 Pulse Oximetry 96 95 03/08/18 12:00 03/08/18 16:00 Temperature 98.2 F 97.7 F Pulse Rate 85 88 Respiratory Rate 16 16 Blood Pressure 129/79 141/90 H Pulse Oximetry 97 96 Intake & Output 03/07/18 03/08/18 03/08/18 18:59 06:59 18:59 Intake Total 0 / 0 Balance 0 / 0 Weight 63.9 kg Intake: Oral 0 / 0 Other: # Voids 1 Weight On Admission 63.9 kg Narrative: GENERAL: This is a well-nourished, well-developed patient, in no apparent distress. SKIN: No rashes, ecchymoses or lesions. Warm and dry. HEAD: Atraumatic. Normocephalic. No temporal or scalp tenderness. EYES: Pupils equal round and reactive. No injection or drainage. ENT: Nose without bleeding, purulent drainage or septal hematoma. Airway patent. NECK: Trachea midline. No lymphadenopathy. Supple, nontender, no meningeal signs. CARDIOVASCULAR: Regular rate and rhythm without murmurs, gallops, or rubs. No JVD. RESPIRATORY: Clear to auscultation. Breath sounds equal bilaterally. No wheezes , rales, or rhonchi. GASTROINTESTINAL: Abdomen soft, non-tender, nondistended. No guarding. MUSCULOSKELETAL: Extremities without clubbing, cyanosis, or edema. NEUROLOGICAL: Awake and alert. Cranial nerves II through XII intact. No focal neurological deficits. Normal speech. Results - Labs CBC & Chem 7: 03/07/18 21:40 03/07/18 21:40 Labs: Laboratory Results - last 24 hr 03/07/18 03/07/18 03/08/18 21:40 21:40 06:15 CBC w Diff Auto diff final WBC 7.0 RBC 4.80 Hgb 14.8 Hct 45.1 MCV 94.0 MCH 30.8 MCHC 32.7 RDW 14.1 Plt Count 328 MPV 8.1 Neut % (Auto) 62.9 Lymph % (Auto) 27.9 [place] % (Auto) 6.2 Eos % (Auto) 1.2 Baso % (Auto) 1.8 Neut # (Auto) 4.4 Lymph # (Auto) 2.0 [place] # (Auto) 0.4 Eos # (Auto) 0.1 Baso # (Auto) 0.1 WBC Differential . Differential Comment . ESR Sodium 141 Potassium 3.9 Chloride 105 Carbon Dioxide 33.1 H Anion Gap 3 L BUN 15 Creatinine 1.10 Estimated GFR 67 L POC Glucose Random Glucose 98 Calcium 9.5 Total Bilirubin 0.6 AST 17 ALT 22 Alkaline Phosphatase 87 Total Protein 8.0 Albumin 4.2 Triglycerides 59 Cholesterol 136 LDL Cholesterol, Calc 77 HDL Cholesterol 47.2 Cholesterol/HDL Ratio 2.88 Vitamin B12 284 Folate 15.9 TSH 03/08/18 03/08/18 03/08/18 06:15 06:15 06:15 CBC w Diff WBC RBC Hgb Hct MCV MCH MCHC RDW Plt Count MPV Neut % (Auto) Lymph % (Auto) [place] % (Auto) Eos % (Auto) Baso % (Auto) Neut # (Auto) Lymph # (Auto) [place] # (Auto) Eos # (Auto) Baso # (Auto) WBC Differential Differential Comment ESR 1 Sodium Potassium Chloride Carbon Dioxide Anion Gap BUN Creatinine Estimated GFR POC Glucose Random Glucose Calcium Total Bilirubin AST ALT Alkaline Phosphatase Total Protein Albumin Triglycerides Cholesterol LDL Cholesterol, Calc HDL Cholesterol Cholesterol/HDL Ratio Vitamin B12 Cancelled Folate Cancelled TSH 1.840 03/08/18 03/08/18 03/08/18 08:00 11:15 16:58 CBC w Diff WBC RBC Hgb Hct MCV MCH MCHC RDW Plt Count MPV Neut % (Auto) Lymph % (Auto) [place] % (Auto) Eos % (Auto) Baso % (Auto) Neut # (Auto) Lymph # (Auto) [place] # (Auto) Eos # (Auto) Baso # (Auto) WBC Differential Differential Comment ESR Sodium Potassium Chloride Carbon Dioxide Anion Gap BUN Creatinine Estimated GFR POC Glucose 97 100 86 Random Glucose Calcium Total Bilirubin AST ALT Alkaline Phosphatase Total Protein Albumin Triglycerides Cholesterol LDL Cholesterol, Calc HDL Cholesterol Cholesterol/HDL Ratio Vitamin B12 Folate TSH - Imaging Impressions Head CT 03/07/18 21:10 CONCLUSION: 1. No acute infarct, acute hemorrhage, midline shift or extra axial fluid collections. 2. Chronic opacification of the right maxillary sinus and posterior ethmoid air cells bilaterally. Carotid Doppler Study 03/08/18 00:00 CONCLUSION: 1. Right Internal Carotid Artery: Prominent mixed plaque extending from the bulb to the origin of the internal carotid artery with significantly increased ratios consistent with severe, greater than 70%, stenosis. 2. Left Internal Carotid Artery: Findings indicate <50% stenosis. Head MRI 03/08/18 07:18 CONCLUSION: 1. Punctate areas of ischemic infarction involving the menard-white junction in the right parietal region as described above. Emboli as well as vasculitis would be considered. Caprini VTE Risk Assessment Caprini VTE Risk Assessment: Moderate/High Risk (score >= 2) Caprini Risk Assessment Model: Point Value = 1 Point Value = 2 Point Value = 3 Point Value = 5 Age 41-60 Minor surgery BMI > 25 kg/m2 Swollen legs Varicose veins or History of unexplained or recurrent spontaneous Oral contraceptives or hormone replacement Sepsis (< 1 month) Serious lung disease, including pneumonia (< 1 month) Abnormal pulmonary function Acute myocardial infarction Congestive heart failure (< 1 month) History of inflammatory bowel disease Medical patient at bed rest Age 61-74 Arthroscopic surgery Major open surgery (> 45 min) Laparoscopic surgery (> 45 min) Malignancy Confined to bed (> 72 hours) Immobilizing plaster cast Central venous access Age >= 75 History of VTE Family history of VTE Factor V Leiden Prothrombin [id number] Lupus anticoagulant Anticardiolipin antibodies Elevated serum homocysteine Heparin-induced thrombocytopenia Other congenital or acquired thrombophilia Stroke (< 1 month) Elective arthroplasty Hip, pelvis, or leg fracture Acute spinal cord injury (< 1 month) Prophylaxis Regimen: Total Risk Factor Score Risk Level Prophylaxis Regimen 0-1 Low Early ambulation 2 Moderate Order ONE of the following: *Sequential Compression Device (SCD) *Heparin 5000 units SQ BID 3-4 Higher Order ONE of the following medications: *Heparin 5000 units SQ TID *Enoxaparin/Lovenox 40 mg SQ daily (WT < 150 kg, CrCl > 30 mL/min) *Enoxaparin/Lovenox 30 mg SQ daily (WT < 150 kg, CrCl > 10-29 mL/min) *Enoxaparin/Lovenox 30 mg SQ BID (WT < 150 kg, CrCl > 30 mL/min) AND/OR *Sequential Compression Device (SCD) 5 or more Highest Order ONE of the following medications: *Heparin 5000 units SQ TID (Preferred with Epidurals) *Enoxaparin/Lovenox 40 mg SQ daily (WT < 150 kg, CrCl > 30 mL/min) *Enoxaparin/Lovenox 30 mg SQ daily (WT < 150 kg, CrCl > 10-29 mL/min) *Enoxaparin/Lovenox 30 mg SQ BID (WT < 150 kg, CrCl > 30 mL/min) AND *Sequential Compression Device (SCD) Assessment and Plan - Plan Mr. Calle is a pleasant 62-year-old male with a history of hypertension, non-Hodgkin's lymphoma, history of bicuspid aortic valve status post surgery who presented to the emergency department on 03/07/2018 due to short -lived left upper extremity numbness as well as left sided bilateral extremity weakness. Acute ischemic infarction Right carotid artery stenosis - CT scan negative for any hemorrhage. MRI shows punctate areas of ischemic infarction involving the menard-white junction in the right parietal region. - Right ICA has greater than 70% stenosis. - We will consult neurology as well as vascular surgery - Echocardiogram shows EF 65-70%. - Start Aspirin 325mg Qday and Lipitor 40mg QHS. Hx Non-Hodgkin's lymphoma - no acute concerns. Hypertension - Permission hypertension upto 220/110 Full code. SCDs.
--- NOTE | 2018-03-08 17:13 | ECHRPT ---
Indication: CVA/TIA CONCLUSIONS The left ventricular systolic function is normal with an estimated ejection fraction in the range 65 -70%. Normal left ventricular size. Wall thickness is normal. No regional wall motion abnormalities are present. There is trace tricuspid valve regurgitation. The estimated pulmonary arterial pressure is 31 mmHg. Trivial pulmonary valve regurgitation. BP: / HR: Rhythm: Sinus Technical Quality:Fair FINDINGS LEFT VENTRICLE The left ventricular systolic function is normal with an estimated ejection fraction in the range 65 -70%. Normal left ventricular size. Wall thickness is normal. No regional wall motion abnormalities are present. RIGHT VENTRICLE Normal right ventricular size and systolic function. LEFT ATRIUM The left atrial size is normal. RIGHT ATRIUM The right atrial size is normal. ATRIAL SEPTUM Normal atrial septal thickness without atrial level shunting by limited color doppler interrogation. AORTA The aortic root and proximal ascending aorta are normal in size on limited imaging. MITRAL VALVE Structurally normal mitral valve. No mitral valve stenosis or regurgitation. AORTIC VALVE Trileaflet aortic valve. No aortic valve stenosis or regurgitation. TRICUSPID VALVE Structurally normal tricuspid valve. There is trace tricuspid valve regurgitation. The estimated pulmonary arterial pressure is 31 mmHg. PULMONARY VALVE Trivial pulmonary valve regurgitation. VESSELS The inferior vena cava is normal in size. PERICARDIUM No pericardial effusion. Emerson Ramirez MD (Electronically Signed) Final Date:08 March 2018 17:12
[2018-03-08 17:28] LABS: Hemoglobin A1c 5.8 % (4.3-6.0)
--- NOTE | 2018-03-08 18:26 | CT ---
EXAM DATE: 03/08/2018 6:14 PM EDT AGE/SEX: 62 years / Male INDICATIONS: Resolved left arm and facial numbness and dizziness. Abnormal ultrasound. Evaluate for occlusion. CLINICAL DATA: This is the patient's initial encounter. Patient reports that signs and symptoms have been present for 2 days and indicates a pain score of 0/10. MEDICAL/SURGICAL HISTORY: Hypertension. Non-Hodgkins lymphoma. None. RADIATION DOSE: 42.04 CTDI (mGy) COMPARISON: [facility], US CAROTID DOPPLER BI, 03/08/2018. . TECHNIQUE: Volumetric scanning was performed using a multirow detector CT scanner during bolus infus ion of 100 ml Omnipaque 350 (iohexol) nonionic water-soluble contrast as a single exam dose. The d lynne was postprocessed with a variety of visualization algorithms including full-volume maximum intens ity projection, multiplanar sliding thin-slab reformation, curved-planar reformation, and surface-aubrey dering techniques. Using automated exposure control and adjustment of the mA and/or kV according to patient size, radiation dose was kept as low as reasonably achievable to obtain optimal diagnostic qu ality images. DICOM format image data is available electronically for review and comparison. FINDINGS: Aortic Arch: There is a three-vessel origin of the great vessels from the aorta. No evidence of ost ial narrowing. Atherosclerotic calcifications are seen at the great vessels without significant steno sis. Right Carotid: The common carotid artery is intact. There is calcified plaque at the carotid bulb an d proximal internal carotid artery. Mild narrowing at the proximal internal carotid artery without si gnificant stenosis. It appears the lumen is narrowed by approximately 50%. The external carotid arter y is intact. Left Carotid: There is mild mural thickening/soft plaque at the mid to distal left common carotid ar david without significant stenosis. There is calcified plaque at the carotid bulb region without signi ficant stenosis. The internal carotid artery lumen is smooth without stenosis. The external carotid artery is intact. Vertebrals: The vertebral arteries have a symmetric diameter. No stenotic lesions are seen. There is diffuse heterogeneity and nodularity seen throughout the thyroid. There is near total opacif ication of the right maxillary sinus. There is focal left maxillary sinus disease and scattered bilat eral ethmoid sinus disease. Percent stenosis is calculated using the diameter of the stenotic region over the diameter of the nor mal distal internal carotid artery. CONCLUSION: 1. Scattered atherosclerotic changes described above. 2. Mild narrowing of the proximal right internal carotid artery with the lumen narrowed by 50%. 3. Heterogeneity and nodularity to the thyroid. Electronically signed by: Lew Vivar MD 03/08/2018 6:25 PM EDT
--- NOTE | 2018-03-08 21:28 | ECG ---
Date Performed: 03/07/2018 Time Performed: 20:16:08 PTAGE: 62 years EKG: Sinus rhythm NORMAL ECG PREVIOUS TRACING : 09/08/2016 06.56 Since the previous tracing, no significant change noted DOCTOR: Jamil Levy Interpretating Date/Time 03/08/2018 21:27:47
[2018-03-09] MEDS ORDERED: Sod Chloride 0.9% Inj 1,000 ML IV.CONT SCH (10:45)
--- NOTE | 2018-03-09 13:06 | MR ---
EXAM DATE: 03/09/2018 12:50 PM EDT AGE/SEX: 62 years / Male INDICATIONS: . Lightheaded and left arm weakness. CLINICAL DATA: This is the patient's subsequent encounter. Patient reports that signs and symptoms h ave been present for 2 days and indicates a pain score of 0/10. MEDICAL/SURGICAL HISTORY: Hypertension. Lymphoma. Appendectomy. Splenectomy. Lymph nodes kwesi yifan from neck. COMPARISON: No prior exams available for comparison. TECHNIQUE: 3D [id number] MRA was performed. Source images, multiplanar STS MIP, and 3D volum e MIP reconstructions were reviewed. FINDINGS: There is excellent visualization of the major intracranial arteries out to the second-order branch ve ssels. There is no evidence for aneurysm, vessel truncation or stenosis, and no evidence for vascula r malformation. CONCLUSION: 1. Negative MRA Cow ([place] [facility]) non contrast. Electronically signed by: Matthew Corrales MD 03/09/2018 1:04 PM EDT
[2018-03-09 14:14] LABS: Free T4 (Free Thyroxine) 0.94 ng/dL (0.76-1.46)
--- NOTE | 2018-03-09 14:24 | MB ---
cc: Cam Lizarraga MD DATE: 03/09/2018 HISTORY OF PRESENT ILLNESS: A 62-year-old right-handed man with hypertension. He had Hodgkin lymphoma, status post radiation to his neck in 1970s and also lung cancer at that time, but nothing since and has been doing well. He does take a baby aspirin a day and Tuesday, he for about a minute, felt extremely weak on the left arm and leg and then seemed to get improved, but he felt still a little bit off, so came in the hospital. REVIEW OF SYSTEMS: He denies any diabetes, hypercholesterolemia, CABG, stent, angioplasty, A-Fib, Coumadin, chest pain, palpitations, vision loss in the right eye, headaches. Never had anything similar. He denies any history of renal, hepatic or pulmonary disease, thyroid disease, lupus, ulcer, seizure or stroke. SOCIAL HISTORY: Nonsmoker or drinker. No drugs. Lives with his mother. FAMILY HISTORY: Negative for cancer, seizure or stroke. MEDICATIONS AT HOME: 1. He was on a baby aspirin a day. 2. Amlodipine. 3. Benazepril. 4. Telmisartan. PHYSICAL EXAMINATION: VITAL SIGNS: He has been in sinus rhythm 118/58, afebrile, 79,15. NECK: There were no carotid bruits. He has radiation changes to his neck bilaterally. He has got a thin neck. HEART: Regular rhythm. No tachycardia. No murmur. NEUROLOGIC: The pupils are equal. Visual nicholson are full, extraocular movements intact without nystagmus. His face has a little bit droopiness on the left side of his face at rest, but he moves it symmetrically with normal sensation. Tongue was midline. No drift. He has normal strength in upper and lower extremities bilaterally. DTRs are 1+ and symmetric throughout. Toes downgoing bilaterally. Pinprick is intact throughout. Double simultaneous stimuli and left hand graphesthesia normal. Ataxic on [id number]. Speech is fluent. He is not aphasic. LABORATORY DATA: CBC is normal. Sedimentation rate 1. TSH is normal. His LDL cholesterol is 77; B12 little bit low at 284. Folate is normal. Hemoglobin A1c 5.8. Basic metabolic profile was normal. Albumin normal. IMAGIN. MRI of the brain shows 4 small punctate infarcts right parietal region. 2. Looking at the CTA on the coronal views, there does appear to be an irregular narrowing; however, it does not really look all that bad on the axial views of the CTA. 3. Carotid ultrasound was read as greater than 70% narrowing with a velocity up to 192 on the right internal carotid artery and 46 on the right common carotid artery. PLAN: Plan for now is to put him on Plavix, do the Holter. His echo has been negative and we will see what Vascular says about the carotid. If it is not felt to be the carotid, more long-term cardiac monitoring would be recommended, although evidently, patient has no insurance. MD RUSTY Mendes/dalton , 10:38 AM , 10:46 AM
--- NOTE | 2018-03-09 14:53 | P.PN ---
Subjective Interval history: Follow up for acute stroke. Patient is doing well. No acute concerns. No fever, chills. Neurology evaluated patient. Physical Exam Vital signs: Vital Signs 03/08/18 16:00 03/08/18 20:00 03/09/18 00:00 Temperature 97.7 F 97.5 F L Pulse Rate 88 78 88 Respiratory Rate 16 20 20 Blood Pressure 141/90 H 112/73 128/88 Pulse Oximetry 96 96 97 03/09/18 04:00 03/09/18 09:06 03/09/18 09:13 Temperature 97.5 F L 96.2 F L 96.9 F L Pulse Rate 85 70 79 Respiratory Rate 20 18 15 Blood Pressure 107/76 118/58 L 118/71 Pulse Oximetry 97 99 96 03/09/18 12:50 Temperature 99.0 F Pulse Rate 89 Respiratory Rate 16 Blood Pressure 122/75 Pulse Oximetry 94 L Intake & Output 03/08/18 03/09/18 03/09/18 18:59 06:59 18:59 Intake Total 480 / 480 240 / 240 Balance 480 / 480 240 / 240 Weight 65.7 kg Intake: Oral 480 / 480 240 / 240 Other: # Voids 2 1 Narrative: GENERAL: AOx3, NAD. SKIN: Warm and dry. HEAD: Normocephalic. EYES: No scleral icterus. No injection or drainage. NECK: Supple, trachea midline. No JVD or lymphadenopathy. CARDIOVASCULAR: Regular rate and rhythm without murmurs, gallops, or rubs. RESPIRATORY: Breath sounds equal bilaterally. No accessory muscle use. GASTROINTESTINAL: Abdomen soft, non-tender, nondistended. MUSCULOSKELETAL: No cyanosis, or edema. BACK: Nontender without obvious deformity. No CVA tenderness. Results - Labs CBC & Chem 7: 03/07/18 21:40 03/07/18 21:40 Laboratory Results - last 24 hr 03/08/18 03/08/18 03/09/18 06:15 16:58 05:03 ESR POC Glucose 86 91 Hemoglobin A1c 5.8 Folate Free T4 03/09/18 03/09/18 03/09/18 07:51 11:23 11:42 ESR 3 POC Glucose 94 117 H Hemoglobin A1c Folate Free T4 03/09/18 11:42 ESR POC Glucose Hemoglobin A1c Folate 12.0 Free T4 0.94 - Imaging Impressions Neck CTA 03/08/18 00:00 CONCLUSION: 1. Scattered atherosclerotic changes described above. 2. Mild narrowing of the proximal right internal carotid artery with the lumen narrowed by 50%. 3. Heterogeneity and nodularity to the thyroid. Head MRI 03/08/18 07:18 CONCLUSION: 1. Punctate areas of ischemic infarction involving the menard-white junction in the right parietal region as described above. Emboli as well as vasculitis would be considered. Head MRA 03/09/18 00:00 CONCLUSION: 1. Negative MRA Cow ([place] [facility]) non contrast. Assessment and Plan - Plan Mr. Calle is a pleasant 62-year-old male with a history of hypertension, non-Hodgkin's lymphoma, history of bicuspid aortic valve status post surgery who presented to the emergency department on 03/07/2018 due to short -lived left upper extremity numbness as well as left sided bilateral extremity weakness. Acute ischemic infarction Right carotid artery stenosis - CT scan negative for any hemorrhage. MRI shows punctate areas of ischemic infarction involving the menard-white junction in the right parietal region. - Right ICA has greater than 70% stenosis. - Neurology evaluated patient - recommends Plavix as well as Event/Loop recorder. - Discussed with master control engineer dry cleaning attendant (Dr. Keita) who recommended Event monitor at his office. Pt was given contact info. - Echocardiogram shows EF 65-70%. - Continue Plavix, Lipitor. Hx Non-Hodgkin's lymphoma - no acute concerns. Hypertension - Continue Amlodipine 5mg Qday. Full code. SCDs. Discharge patient to home Condition on discharge: Improved Cardiac Diet as tolerated Ad Mek[facility] activity Rx written: Plavix 75mg Qday Lipitor 40mg QHS Amlodipine 5mg Qday. Follow-up with primary care physician within 7-10 days. Event monitor at Dr. Keita's office today.
--- NOTE | 2018-03-09 17:08 | P.PNVS ---
Subjective Subjective/Hospital Course: 62-year-old male with nonspecific neurologic symptoms and the questionable hemodynamically significant stenosis of the right carotid artery on duplex Doppler ultrasound. CTA of the carotids reveals perhaps 40-50% stenosis and this is hemodynamically nonsignificant finding. CTA is on the accurate study with high degree of sensitivity and specificity. Patient should have a repeat ultrasound in about 2 years but at this point does not require any intervention from vascular point. From my point patient can be discharged any time Thanks J Objective Vital Signs / I&O: Vital Signs 03/08/18 20:00 03/09/18 00:00 03/09/18 04:00 Temperature 97.5 F L 97.5 F L Pulse Rate 78 88 85 Respiratory Rate 20 20 20 Blood Pressure 112/73 128/88 107/76 Pulse Oximetry 96 97 97 03/09/18 09:06 03/09/18 09:13 03/09/18 12:50 Temperature 96.2 F L 96.9 F L 99.0 F Pulse Rate 70 79 89 Respiratory Rate 18 15 16 Blood Pressure 118/58 L 118/71 122/75 Pulse Oximetry 99 96 94 L Intake & Output 03/08/18 03/09/18 03/09/18 18:59 06:59 18:59 Intake Total 480 / 480 240 / 240 Balance 480 / 480 240 / 240 Weight 65.7 kg Intake: Oral 480 / 480 240 / 240 Other: # Voids 2 1 Laboratory Results - last 24 hr 03/08/18 03/09/18 03/09/18 06:15 05:03 07:51 ESR POC Glucose 91 94 Hemoglobin A1c 5.8 Folate Free T4 03/09/18 03/09/18 03/09/18 11:23 11:42 11:42 ESR 3 POC Glucose 117 H Hemoglobin A1c Folate 12.0 Free T4 0.[address] 03/07/18 21:10 CONCLUSION: 1. No acute infarct, acute hemorrhage, midline shift or extra axial fluid collections. 2. Chronic opacification of the right maxillary sinus and posterior ethmoid air cells bilaterally. Carotid Doppler Study 03/08/18 00:00 CONCLUSION: 1. Right Internal Carotid Artery: Prominent mixed plaque extending from the bulb to the origin of the internal carotid artery with significantly increased ratios consistent with severe, greater than 70%, stenosis. 2. Left Internal Carotid Artery: Findings indicate <50% stenosis. Neck CTA 03/08/18 00:00 CONCLUSION: 1. Scattered atherosclerotic changes described above. 2. Mild narrowing of the proximal right internal carotid artery with the lumen narrowed by 50%. 3. Heterogeneity and nodularity to the thyroid. Head MRI 03/08/18 07:18 CONCLUSION: 1. Punctate areas of ischemic infarction involving the menard-white junction in the right parietal region as described above. Emboli as well as vasculitis would be considered. Head MRA 03/09/18 00:00 CONCLUSION: 1. Negative MRA Cow ([place] [facility]) non contrast.
--- NOTE | 2018-03-11 17:04 | HM ---
Date Performed: 03/08/2018 Time Performed: 21:57:00 HOOKUP DATE: 03/08/18 09:57:00 PM Wed ANALYSIS START TIME: 03/08/2018 10:02:00 PM ANALYSIS END TIME: 03/09/2018 12:33:11 PM PATIENT AGE: 62 PATIENT HEIGHT PATIENT WEIGHT DRUG LIST PATIENT DIAGNOSIS TEST NARRATIVE: The patient's average heart rate was 83 BPM. Heart rates greater than 120 B PM were noted < 1% of the time. Heart rates less than 50 BPM were noted < 1% of the time. No ayush ses exceeding 2.0 seconds were noted. 17 ventricular ectopics, which represented < 1% of the tota l beat count, were noted. The highest ventricular ectopic frequency occurred from 07:00 AM to 08:00 AM Sonali. During this time 7 VE(s) occurred. Ventricular ectopics were observed as 17 isolated beat(s ) only. No couplets or runs were noted. 99 supraventricular ectopics, which represented < 1% of the total beat count, were noted. The highest supraventricular ectopic frequency occurred from 11:00 PM to 12:00 AM Sonali. During this time 15 SVE(s) occurred. Multiple episodes of ST depression (de fined as -1.0 mm or more) were noted in channel 1. The maximum depression of -1.8 mm occurred at 09 :36:03 AM Sonali. Multiple episodes of ST depression (defined as -1.0 mm or more) were noted in channe l 2. The maximum depression of -1.9 mm occurred at 09:36:03 AM Sonali. No episodes of ST depression (d efined as -1.0 mm or more) were noted in channel 3. TEST INTERPRETATION: There are 3 episodes of between 10-15 beats of what appears to be paroxysma l atrial fibrillation self-terminating back to Sinus rhythm . Rate of the ventricular response to the atrial fibrillation between 140 and 160. These all do self- terminate. There is one episode of marked sinus bradycardia at 0629 am consisting of 4 beats at a hea rt rate of between 35 and 40, and then the heart rate speeds up to 50-60 quickly. Otherwise no marked bradycardia episodes are seen. Overall, this patient has some atrial ectopy with 3 episodes of atria l fibrillation with rapid ventricular response all self-terminating after between 10 and 15 beats, an d one episode of very brief bradycardia in the 30s. Signed by : Roman Victor
== END 2018-03-09 14:29 | disposition home or self-care (01) ==
LOC: PHED 20:03 → PHEDA 20:03 → PH3 03-08 00:48
PROVIDERS: ADMIT Hospitalist; ATTEND Hospitalist
DX: I65.21 Occlusion and stenosis of right carotid artery; Z79.02 Long term (current) use of antithrombotics/antiplatelets; I10 Essential (primary) hypertension; I48.0 Paroxysmal atrial fibrillation; Z85.118 Personal history of other malignant neoplasm of bronchus and lung; Z85.71 Personal history of Hodgkin lymphoma; R00.1 Bradycardia, unspecified; Z79.899 Other long term (current) drug therapy; Z92.3 Personal history of irradiation